=== PATIENT | female | born 1945 | race Caucasian/White ===

== ENCOUNTER → 2025-05-25 | Outpatient (CLI) | payer MEDICARE, MEDICAID, SELFPAY ==
--- NOTE | 2025-05-25 10:00 | XR_ITS ---
Examination: CT chest, without intravenous contrast. Sagittal and coronal 2-D reconstructions. Exam date and time: May 25, 2025, 10:23 a.m. INDICATIONS: COPD history with chronic shortness of breath 8 years CTDI:vol (mGy) 9.72 DLP: (mGycm) 338 Technique: Multiple 3.0 mm axial sections of the chest to been obtained. Bone and lung density settings are obtained. Sagittal and coronal 2-D reconstructions have been obtained. Low dose protocols were performed. One or more of the following dose reduction techniques were used; automated exposure control, adjustment of the mA and/or KV according to patient size, use of iterative reconstruction technique. Findings: No thoracic aortic aneurysm dilatation Main pulmonary artery segment enlarged, 37 mm Heavy calcification left circumflex right coronary arteries No mediastinal lymphadenopathy 4 mm pulmonary nodule left upper lobe image 66 12 mm pulmonary nodule left upper lobe image 75, 9 mm pulmonary nodule left upper lobe image 74 4 mm pulmonary nodule right upper lobe image 169 4 mm pulmonary nodule right middle lobe image 210 4 mm pulmonary nodule right lower lobe image 246 COPD with multiple areas of airspace destruction No lobar pneumonia or pulmonary edema No visualized liver or splenic lesion Gallbladder partly visualized no stones Pancreas is not enlarged 2 mm right renal calculus, no hydronephrosis IMPRESSION: COPD Multiple noncalcified pulmonary nodules as above, with the studies baseline recommend 6-month follow-up CT chest without contrast
== END | disposition home or self-care (01) ==
PROVIDERS: PCP Internal Medicine; Referring Provider Student in an Organized Health Care Education/Training Program; Visit Provider Student in an Organized Health Care Education/Training Program
DX: J44.9 Chronic obstructive pulmonary disease, unspecified (principal); R91.8 Other nonspecific abnormal finding of lung field
CPT/HCPCS: 71250